=== PATIENT | male | born 1975 | race Caucasian/White ===

== ENCOUNTER 2016-10-05 21:40 | Emergency (ER) | payer OTHER ==
[2016-10-05 21:52] VITALS: BP 144/84; PULSE 80; RESP 18; TEMP 98.5; O2SAT 99
--- NOTE | 2016-10-05 22:15 | C.PDOC ---
History Of Present Illness 41 year old male who presents to the ER with a complaint of left ear pain for 3 days after swimming; associated with a mild sore throat that has now resolved. Denies fever, ear discharge, facial swelling, or dizziness. Time Seen by Provider: 10/05/16 21:57 Chief Complaint (Nursing): ENT Problem History Per: Patient History/Exam Limitations: None Onset/Duration Of Symptoms: Days (3) Current Symptoms Are (Timing): Still Present Quality (Ear): Pain W/Touch Symptoms Have Been: Continuous Anticoagulant/Antiplatlet Use?: Unknown Recent Aspirin Use: Unknown Past Medical History Reviewed: Historical Data, Nursing Documentation, Vital Signs Vital Signs: Last Vital Signs Temp 98.5 F 10/05/16 21:49 Pulse 80 10/05/16 21:49 Resp 18 10/05/16 21:49 BP 144/84 10/05/16 21:49 Pulse Ox 99 10/06/16 02:27 - Medical History PMH: No Chronic Diseases Surgical History: No Surg Hx Family History: States: Unknown Family Hx - Social History Hx Alcohol Use: Yes Hx Substance Use: No - Immunization History Hx Tetanus Toxoid Vaccination: Yes Hx Influenza Vaccination: No Hx Pneumococcal Vaccination: No Review Of Systems Constitutional: Negative for: Fever, Chills ENT: Positive for: Ear Pain. Negative for: Ear Discharge Skin: Negative for: Other (Facial swelling) Neurological: Negative for: Dizziness Physical Exam - Physical Exam Appears: Non-toxic, No Acute Distress Skin: Normal Color, Warm, Dry Head: Atraumatic, Normacephalic Eye(s): bilateral: Normal Inspection, PERRL Ear(s): Left: Other (Tragal tenderness, tenderness to posterior auricle, minimal erythema to canal), Right: Normal Nose: Normal, No Discharge Oral Mucosa: Moist Throat: Normal, No Erythema, No Exudate Neck: Normal, Supple Lymphatic: Adenopathy (left post auricular) Respiratory: Normal Breath Sounds Neurological/Psych: Oriented x3, Normal Speech, Normal Cognition Gait: Steady ED Course And Treatment O2 Sat by Pulse Oximetry: 99 (Room air) Pulse Ox Interpretation: Normal Progress Note: Patient is resting comfortably, and is in no acute distress. Patient was instructed to follow up with PMD in 1-2 days for further evaluation. Disposition Counseled Patient/Family Regarding: Diagnosis, Need For Followup, Rx Given - Disposition Disposition: HOME/ ROUTINE Disposition Time: 22:13 Condition: STABLE Additional Instructions: Please follow up with PMD USe ear drops as prescribed Follow up with PMD Return to ER if worse Prescriptions: Neomycin/Polymyxin/Hydrocortis [Cortisporin Otic Susp] 3 drop TOP TID #1 bottle Instructions: Otitis Externa (ED) - Clinical Impression Clinical Impression: Otitis externa of left ear - Scribe Statement The provider has reviewed the documentation as recorded by the Scribjaylin Wiley All medical record entries made by the Allyssa were at my direction and personally dictated by me. I have reviewed the chart and agree that the record accurately reflects my personal performance of the history, physical exam, medical decision making, and the department course for this patient. I have also personally directed, reviewed, and agree with the discharge instructions and disposition.
== END 2016-10-05 22:22 | disposition home or self-care (01) ==
LOC: C.ER 21:40
DX: H60.92 Unspecified otitis externa, left ear (principal)